=== PATIENT | female | born 1960 | race Two or more races ===

== ENCOUNTER 2021-03-08 22:21 | Emergency (ER) | payer SELFPAY ==
[~2021-03-08] VITALS: Ht 152.4 cm; Wt 58.1 kg
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
[2021-03-08] MEDS ORDERED: CYCLOBENZAPRINE 10 MG TABLET ONE (22:58)
[2021-03-08] MEDS ORDERED: KETOROLAC TROMETHAMINE INJ 30 MG/ML VIAL ONE (22:58)
[2021-03-08] MEDS ORDERED: CYCLOBENZAPRINE 10 MG TABLET PO ONE (23:00)
[2021-03-08] MEDS ORDERED: KETOROLAC TROMETHAMINE INJ 30 MG/ML VIAL IM ONE (23:00)
[2021-03-08] MEDS ORDERED: ACETAMINOPHEN ES 500 MG TABLET ONE (23:04)
[2021-03-08] MEDS ORDERED: ACETAMINOPHEN ES 500 MG TABLET PO ONE (23:30)
[2021-03-08] MEDS ORDERED: ACET-2605 PO (23:41)
[2021-03-08] MEDS ORDERED: IBUP-1957 PO (23:41)
[2021-03-08] MEDS ORDERED: CYCL5TAB PO (23:41)
--- NOTE | 2021-03-08 23:55 | NUR ---
Patient discharged to home in stable condition. Written and verbal after care instructions given. Patient verbalizes understanding of instruction.
[2021-03-08 23:56] VITALS: BP 155/86
== END 2021-03-09 00:05 | disposition home or self-care (01) ==
LOC: ER 22:23
DX: M54.50 Low back pain, unspecified (principal); I10 Essential (primary) hypertension; E78.5 Hyperlipidemia, unspecified; E11.9 Type 2 diabetes mellitus without complications; Z79.899 Other long term (current) drug therapy; V49.49XA Driver injured in collision with other motor vehicles in traffic accident, initial encounter; Y93.89 Activity, other specified; Y92.488 Other paved roadways as the place of occurrence of the external cause; Y99.8 Other external cause status
CPT/HCPCS: 99283; J1885

== ENCOUNTER 2021-07-06 23:32 | Emergency (ER) | payer OTHER ==
[~2021-07-06] VITALS: Ht 152.4 cm; Wt 61.2 kg
[~2021-07-06 23:32] MED LIST: ACET-2605 PO; CYCL5TAB PO; IBUP-1957 PO
--- NOTE | 2021-07-06 23:50 | NUR ---
BIBS C/O HIGH BLOOD PRESSURE AT HOME 184/100 HX OF HYPERTENSION -HEADACHE ASYMPTOMATIC BP AT TRIAGE: 179/93. PATIENT ALERT AND ORIENTED X3. AMBULATORY WITH NON LABORED BREATHING.
--- NOTE | 2021-07-06 23:53 | NUR ---
AT [facility]
--- NOTE | 2021-07-07 00:10 | NUR ---
RFA #20G S/L; PATENT AND INTACT. BLOOD COLLECTED AND GIVEN TO LAB
[2021-07-07 00:15] LABS: BASOPHILS # (AUTO) 0.1 K/uL (0.0-0.2); BASOPHILS % (AUTO) 1.1 % (0.0-2.0); EOSINOPHILS % (AUTO) 2.9 % (0.0-6.0); HEMATOCRIT 43 % (33-45); HEMOGLOBIN 14.6 g/dL (11.5-14.8); LYMPHOCYTES # (AUTO) 2.3 K/uL (0.8-4.8); LYMPHOCYTES % (AUTO) 29.5 % (20.0-44.0); MEAN CORPUSCULAR HGB CONC 34 g/dl (31.0-36.0); MEAN CORPUSCULAR VOLUME 86 fL (82-100); MONOCYTES # (AUTO) 0.6 K/uL (0.1-1.30); MONOCYTES % (AUTO) 7.6 % (2.0-12.0); NEUTROPHILS # (AUTO) 4.7 K/uL (1.8-8.9); NEUTROPHILS % (AUTO) 58.9 % (43.0-81.0); PLATELET COUNT (AUTO) 328 K/uL (150-450); RED BLOOD CELL COUNT(AUTO) 5.03 MIL/uL (4.0-5.2); WHITE BLOOD COUNT (AUTO) 7.9 K/uL (4.3-11.0)
[2021-07-07 00:19] LABS: CALCIUM, SERUM 9.5 mg/dL (8.5-10.1); CARBON DIOXIDE 31 mmol/L (21-32); CHLORIDE 103 mmol/L (98-107); CREATININE 0.7 mg/dL (0.6-1.3); GLUCOSE 136 mg/dL (74-106); POTASSIUM 3.6 mmol/L (3.5-5.1); SODIUM SERUM 141 mmol/L (136-145); UREA NITROGEN, BLOOD 19 mg/dL (7-18)
[2021-07-07 00:33] LABS: ALANINE AMINOTRANSFERASE 44 U/L (12-78); ALBUMIN 3.9 g/dL (3.4-5.0); ALKALINE PHOSPHATASE 137 U/L (46-116); ASPARTATE AMINOTRANSFERASE 27 U/L (15-37)
--- NOTE | 2021-07-07 01:15 | NUR ---
Patient discharged to home in stable condition. Written and verbal after care instructions given. Patient verbalizes understanding of instruction. PT ambulatory with a steady gait. IV removed. Catheter intact and site benign. Pressure and 4x4 applied to site. No bleeding noted.
[2021-07-07 01:16] VITALS: BP 144/84
[2021-07-07 04:26] LABS: BILIRUBIN,TOTAL 0.8 mg/dL (0.2-1.0)
[2021-07-07 07:25] LABS: BILIRUBIN,DIRECT 0.1 mg/dL (0.0-0.2)
== END 2021-07-07 01:16 | disposition home or self-care (01) ==
LOC: ER 23:38
DX: I10 Essential (primary) hypertension (principal); E78.5 Hyperlipidemia, unspecified
CPT/HCPCS: 36415; 80048-TC; 80076-TC; 84484-TC; 85025-TC; 85730-TC

== ENCOUNTER 2021-08-08 22:29 | Emergency (ER) | payer OTHER ==
[~2021-08-08] VITALS: Ht 152.4 cm; Wt 61.2 kg
[2021-08-08 23:47] LABS: CALCIUM, SERUM 9.3 mg/dL (8.5-10.1); CARBON DIOXIDE 31 mmol/L (21-32); CHLORIDE 106 mmol/L (98-107); CREATININE 0.7 mg/dL (0.6-1.3); GLUCOSE 110 mg/dL (74-106); POTASSIUM 4.1 mmol/L (3.5-5.1); SODIUM SERUM 142 mmol/L (136-145); UREA NITROGEN, BLOOD 14 mg/dL (7-18)
[2021-08-09 00:17] VITALS: BP 149/66
--- NOTE | 2021-08-09 00:48 | NUR ---
Patient discharged to home in stable condition. Written and verbal after care instructions given. Patient verbalizes understanding of instruction. Pt ambulatory with a steady gait
== END 2021-08-09 00:50 | disposition home or self-care (01) ==
LOC: ER 22:30
DX: I10 Essential (primary) hypertension (principal); E78.5 Hyperlipidemia, unspecified; Z79.899 Other long term (current) drug therapy
CPT/HCPCS: 36415; 80048-TC; 84484-TC